=== PATIENT | male | born 1960 | race Caucasian/White ===

== ENCOUNTER → 2020-01-04 | Outpatient (CLI) | payer OTHER ==
[~2020-01-04] MED LIST: BACTRIM DS TAB1 EACH PO; CIPROFLOXACIN500 M1 PO; HYDROCODON-ACE1 EAC7 PO; MULTIVITAMINS PO; NOHOMEMEDICATIONS; NORCO 5-325 TA1 EACH PO; NORVASC 5 MG TAB5 MG PO; SENOKOT-S1 TA1 PO; TAMSULOSIN HCL0.4 M1 PO; TAMSULOSIN HCL0.4 MG PO
== END ==
LOC: CAT 09:09
DX: J43.9 Emphysema, unspecified (principal); M47.814 Spondylosis without myelopathy or radiculopathy, thoracic region; N28.1 Cyst of kidney, acquired

== ENCOUNTER → 2020-02-12 | Outpatient (CLI) | payer OTHER | LOC: SJCVCIMAG 10:52 | DX: I10 Essential (primary) hypertension (principal); E78.5 Hyperlipidemia, unspecified; Z87.891 Personal history of nicotine dependence ==